=== PATIENT | male | born 1950 | race Caucasian/White ===

== ENCOUNTER → 2024-05-21 | Outpatient (CLI) | payer MEDICARE, BC, SELFPAY ==
--- NOTE | 2024-05-21 09:00 | XR_ITS ---
Examination: Abdomen sonogram, complete Date and time of exam: May 21, 2024 0852 hours INDICATIONS: Acid reflux heartburn vomiting beginning 2-3 years ago. Technique: Multiple real-time grayscale transabdominal sonographic images of the abdomen have been obtained. Findings: 10 mm gallstone Gallbladder wall 0.3 cm no edema Common normal common bile duct 0.3 cm Pancreatic head 2.8 cm Aorta not enlarged Liver 11.7 cm fatty infiltration no focal liver lesions Normal hepatopedal portal venous flow Patent IVC Right kidney 10.7 x 6.1 x 5.6 cm renal cortex 1.6 cm Left kidney 12.0 x 5.3 x 4.5 cm cortex 1.8 cm Mild bilateral renal parenchymal scar formation Mild left hydronephrosis Spleen 9.9 cm IMPRESSION: Cholelithiasis, negative for cholecystitis Fatty liver Mild left hydronephrosis
--- NOTE | 2024-05-21 09:48 | XR_ITS ---
Examination: Esophagram standard Fluoroscopy 22 spot fluoroscopic films of the esophagus Upright PA chest single view Upright soft tissue lateral neck single view Exam date and time: May 21, 2024 0953 hours INDICATIONS: Heartburn reflux beginning 5 years ago TECHNIQUE AND FINDINGS: Upright PA chest normal heart size ectatic thoracic aorta, probable scarring at the right lung base Soft tissue lateral neck demonstrates advanced degenerative disc disease C3-C4, C5-C6, C6-C7 with moderate cervical spondylosis Severe esophageal dysmotility No primary peristaltic waves Numerous secondary and tertiary esophageal contractions with esophageal spasm Continuous gastroesophageal reflux Narrowing of the gastroesophageal junction 80% No esophageal ulcerations Fluoroscopy 0.28 minutes 22 spot fluoroscopic films IMPRESSION: Severe esophageal dysmotility No primary peristaltic esophageal waves Numerous secondary and tertiary esophageal contractions with esophageal spasm Continuous gastroesophageal reflux Stricture likely related to reflux at the gastroesophageal junction, 80% stenosis
== END | disposition home or self-care (01) ==
PROVIDERS: PCP Internal Medicine; Referring Provider Internal Medicine; Visit Provider Internal Medicine
DX: K22.4 Dyskinesia of esophagus (principal); K21.9 Gastro-esophageal reflux disease without esophagitis; K80.20 Calculus of gallbladder without cholecystitis without obstruction; K76.0 Fatty (change of) liver, not elsewhere classified; N13.30 Unspecified hydronephrosis
CPT/HCPCS: 74220; 76700

== ENCOUNTER 2024-08-04 12:45 | Day surgery (SDC) | payer MEDICARE, BC, SELFPAY ==
[2024-08-01 15:14] VITALS: BMI 25.7
[2024-08-04] VITALS (9 sets, daily range): BP systolic 114–153; BP diastolic 76–100; PULSE 65–92; RESP 12–21; TEMP 36.1–36.6; O2SAT 94–100; BMI 25.9
[2024-08-04] MEDS: fentaNYL CIT INJ 50 mCg/ML AMP 2ML (ASD USE ONLY) IV (15:07)
[2024-08-04] MEDS: MIDAZOLAM INJ 1 MG/ML VIAL 2 ML (ASD USE ONLY) 2 MG IV (15:07)
[2024-08-04] MEDS: SODIUM CHLORIDE 0.9% 500 ML 500 ML 100 ML IV (15:07)
[2024-08-04] MEDS: DiphenhydrAMINE INJ 50 MG/ML VIAL 25 MG IV (15:08)
== END 2024-08-04 15:33 | disposition home or self-care (01) ==
PROVIDERS: PCP Internal Medicine; Referring Provider Specialist; Visit Provider Specialist
PROC: (CPT 43239; principal; 2024-08-04 14:15)
DX: K22.2 Esophageal obstruction (principal); K29.70 Gastritis, unspecified, without bleeding
CPT/HCPCS: 43249; 43239; C1725; J1200; J2250; J3010; J7040

== ENCOUNTER 2024-09-15 11:40 | Day surgery (SDC) | payer MEDICARE, BC, SELFPAY ==
[2024-09-15] VITALS (10 sets, daily range): BP systolic 123–155; BP diastolic 73–97; PULSE 58–86; RESP 12–20; TEMP 36.2–37; O2SAT 94–99; BMI 25.4
[2024-09-15] MEDS: SODIUM CHLORIDE 0.9% 500 ML 500 ML 20 ML IV (13:10)
[2024-09-15] MEDS: BENZOCAINE 20% (Hurricaine) SPRAY 1 DOSE TOP (13:18)
[2024-09-15] MEDS: DiphenhydrAMINE INJ 50 MG/ML VIAL 25 MG IV (13:20)
[2024-09-15] MEDS: fentaNYL CIT INJ 50 mCg/ML AMP 2ML (ASD USE ONLY) IV (13:30)
[2024-09-15] MEDS: MIDAZOLAM INJ 1 MG/ML VIAL 2 ML (ASD USE ONLY) 2 MG IV (13:30)
--- NOTE | 2024-09-15 13:55 | SUR.PHASEII ---
1336: Pt received for recovery. Report from Davida CRUZ. Pt obtunded. Resp even, unlabored. VS stable. No signs of pain, discomfort.
--- NOTE | 2024-09-15 14:46 | SUR.PHASEII ---
1400: Pt more awake, alert. VS stable. Denies pain. Sitting up tolerating po fluids with no difficulty swallowing and no n/v. 1422: Pt fully awake, oriented x3. VS stable. Denies pain. Pt assisted to restroom. Ambulation steady. Pt stated understanding of discharge instructions. Pt discharged from [facility] in stable condition.
== END 2024-09-15 14:22 | disposition home or self-care (01) ==
PROVIDERS: PCP Internal Medicine; Referring Provider Specialist; Visit Provider Specialist
PROC: (CPT 43239; principal; 2024-09-15 12:45)
DX: K22.2 Esophageal obstruction (principal); K29.70 Gastritis, unspecified, without bleeding; E78.5 Hyperlipidemia, unspecified; I10 Essential (primary) hypertension; I25.10 Atherosclerotic heart disease of native coronary artery without angina pectoris; Z95.5 Presence of coronary angioplasty implant and graft; Z79.02 Long term (current) use of antithrombotics/antiplatelets; Z79.82 Long term (current) use of aspirin; Z79.899 Other long term (current) drug therapy
CPT/HCPCS: 43249; C1725; J1200; J2250; J3010; J7040; A9270

== ENCOUNTER 2024-11-28 09:20 | Day surgery (SDC) | payer MEDICARE, BC, SELFPAY ==
[2024-11-28] VITALS (10 sets, daily range): BP systolic 114–157; BP diastolic 80–103; PULSE 77–89; RESP 12–20; TEMP 36.4–36.9; O2SAT 92–100; BMI 25.6
[2024-11-28] MEDS: SODIUM CHLORIDE 0.9% 500 ML 500 ML 20 ML IV (10:51)
[2024-11-28] MEDS: fentaNYL CIT INJ 50 mCg/ML AMP 2ML (ASD USE ONLY) IVP (10:59)
[2024-11-28] MEDS: MIDAZOLAM INJ 1 MG/ML VIAL 2 ML (ASD USE ONLY) 2 MG IVP (10:59)
--- NOTE | 2024-11-28 11:43 | SUR.PHASEII ---
1112 patient into recovery with no acute distress noted, v/s stable, no complaints of pain or nausea at this time, report received from radha archer. 1122 patient repositions self for comfort, patient denies pain and nausea, patient continues to pass flatus. 1132 patient drinking water with no difficulty. 1143 patient ambulates to wheelchair with no assistance needed, with a steady gait.
--- NOTE | 2024-11-28 11:53 | SUR.PHASEII ---
d/c instructions given to patient and patient's Daniels. Patient discharged home at 1150.
== END 2024-11-28 11:50 | disposition home or self-care (01) ==
PROVIDERS: PCP Nurse Practitioner Family; Referring Provider Specialist; Visit Provider Specialist
PROC: (CPT 43239; principal; 2024-11-28 10:30)
DX: K22.2 Esophageal obstruction (principal); K31.89 Other diseases of stomach and duodenum
CPT/HCPCS: 43249; C1726; J1200; J2250; J3010; J7999

== ENCOUNTER → 2024-12-26 | Outpatient (CLI) | payer MEDICARE, BC, SELFPAY ==
[2024-12-26 10:44] LABS: Basophils # (Auto) 0.1 Thou/mm3 (0.0-0.2); Basophils % (Auto) 1 % (0-2.5); Eosinophils # (Auto) 0.5 Thou/mm3 (0.0-0.5); Eosinophils % (Auto) 5 % (0-10); Hematocrit 46.7 % (41.0-53.0); Hemoglobin 15.4 g/dL (13.5-16.0); Immature Granulocytes Auto 0.10 Thou/mm3 (0.00-0.00); Lymphocytes # (Auto) 3.0 Thou/mm3 (1.0-4.8); Lymphocytes % (Auto) 33 % (10-50); Mean Corpuscular HGB Conc 33.0 g/dl (31.0-37.0); Mean Corpuscular Hemoglobin 30.0 pg (25.0-35.0); Mean Corpuscular Volume 91 fL (80-100); Monocytes # (Auto) 1.0 Thou/mm3 (0.0-0.8); Monocytes % (Auto) 11 % (0-12); Neutrophils # (Auto) 4.4 Thou/mm3 (1.8-7.7); Neutrophils % (Auto) 48 % (37-80); Nucleated Red Blood Cell # 0.00 Thou/mm3 (0.00-0.00); Nucleated Red Blood Cell % 0 /100 WBC (0); Platelet Count 157 Thou/mm3 (140-440); RDW Standard Deviation 46.2 fL (35.1-43.9); Red Blood Count 5.13 Miln/mm3 (4.50-5.90); White Blood Count 9.0 Thou/mm3 (3.8-10.6)
[2024-12-26 11:16] LABS: Collection Type, Urine Clean Catch; Squamous Epithelial Cell,Urine 0 /hpf (0-5)
[2024-12-26 12:24] LABS: Amorphous Crystals,Urine Present (Absent); Bacteria,Urine Rare; Bilirubin,Urine Negative (Negative); Blood,Urine Negative (Negative); Clarity,Urine Clear (Clear/Hazy); Color,Urine Lt-Yellow (Lt Yel-Yel); Glucose, Urine Negative (Negative); Ketones,Urine Negative (Negative); Leukocyte Esterase,Urine Negative (Negative); Nitrite,Urine Negative (Negative); PH,Urine 6.0 (5.0-7.0); Protein,Urine Negative (Neg - Trace); RBC,Urine 2 /hpf (0-3); Specific Gravity,Urine 1.023 (1.001-1.035); Urobilinogen,Urine Negative mg/dL (0.0-1.0); WBC,Urine 1 /hpf (0-5)
[2024-12-26 12:52] LABS: Alanine Aminotransferase 17 U/L (10-49); Albumin, Serum 4.5 gm/dL (3.4-4.8); Albumin/Globulin Ratio 1.7 (1.2-2.2); Alkaline Phosphatase 85 U/L (46-116); Anion Gap 9 (7-16); Aspartate Amino Transferase 29 U/L (0-34); BUN/Creatinine Ratio 13 Ratio (12-20); Bilirubin,Total 1.0 mg/dL (0.3-1.2); Blood Urea Nitrogen 12 mg/dL (9-23); Calcium 9.6 mg/dL (8.3-10.6); Calcium (Corrected) 9.6 mg/dL (8.5-10.1); Carbon Dioxide 24.6 mMol/L (20.0-31.0); Chloride 104 mMol/L (98-107); Creatinine (Component) 0.9 mg/dL (0.6-1.3); Globulin 2.6 gm/dL (2.3-3.5); Glucose 90 mg/dL (74-106); Lipase 79 U/L (12-53); Osmolality,Calculated 275 (275-295); Potassium 4.0 mMol/L (3.4-5.1); Sodium 138 mMol/L (136-145); Total Protein 7.1 gm/dL (5.7-8.2); eGFR > 60 See Note
[2024-12-27 02:09] LABS: Amylase 50 U/L (30-118)
== END | disposition home or self-care (01) ==
LOC: COPL 09:47
PROVIDERS: PCP Internal Medicine; Referring Provider Specialist; Visit Provider Specialist
DX: R14.0 Abdominal distension (gaseous) (principal); R10.13 Epigastric pain; E78.9 Disorder of lipoprotein metabolism, unspecified
CPT/HCPCS: 36415; 80053; 81001; 82150; 83690; 85025

== ENCOUNTER → 2025-01-13 | Outpatient (CLI) | payer MEDICARE, BC, SELFPAY ==
--- NOTE | 2025-01-13 14:00 | XR_ITS ---
Examination: CT abdomen and pelvis without contrast. Coronal 3-D reconstructions. Sagittal 2-D reconstructions. Date and time of exam:January 13, 2025 1355 hours INDICATIONS: Abdominal distention left lower abdominal pain 5 years, history kidney stones October 04, 2009 CTDI: vol (mGy): 7.91 DLP: (mGycm): 515 Technique: Axial images of the abdomen have been obtained, 3 mm slice thickness Intravenous contrast material has not been administered. Low dose protocols were performed. One or more of the following dose reduction techniques were used; automated exposure control, adjustment of the mA and/or KV according to patient size, use of iterative reconstruction technique. Findings: Liver calcifications. No gallstones. No pancreatic mass Spleen not enlarged. Moderate renal parenchymal scar formation No renal or ureteral calculi, no hydronephrosis Aortic calcification no aneurysmal dilatation Normal appendix No bowel obstruction No diverticulitis Normal seminal vesicles Transverse prostate dimension 4.4 cm Contracted urinary bladder, urinary bladder wall thickening up to 5 mm Prominent osteopenia IMPRESSION: Normal appendix No bowel obstruction Urinary bladder wall thickening, consider cystitis
== END | disposition home or self-care (01) ==
LOC: CCTX 13:47
PROVIDERS: PCP Specialist; Referring Provider Specialist; Visit Provider Specialist
DX: N32.89 Other specified disorders of bladder (principal)
CPT/HCPCS: 74176

== ENCOUNTER → 2025-01-15 | Outpatient (CLI) | payer MEDICARE, BC, SELFPAY ==
[2025-01-15 12:04] LABS: Basophils # (Auto) 0.1 Thou/mm3 (0.0-0.2); Basophils % (Auto) 1 % (0-2.5); Eosinophils # (Auto) 0.4 Thou/mm3 (0.0-0.5); Eosinophils % (Auto) 5 % (0-10); Hematocrit 47.8 % (41.0-53.0); Hemoglobin 15.8 g/dL (13.5-16.0); Immature Granulocytes Auto 0.08 Thou/mm3 (0.00-0.00); Lymphocytes # (Auto) 3.0 Thou/mm3 (1.0-4.8); Lymphocytes % (Auto) 35 % (10-50); Mean Corpuscular HGB Conc 33.1 g/dl (31.0-37.0); Mean Corpuscular Hemoglobin 30.1 pg (25.0-35.0); Mean Corpuscular Volume 91 fL (80-100); Monocytes # (Auto) 1.0 Thou/mm3 (0.0-0.8); Monocytes % (Auto) 11 % (0-12); Neutrophils # (Auto) 4.0 Thou/mm3 (1.8-7.7); Neutrophils % (Auto) 46 % (37-80); Nucleated Red Blood Cell # 0.00 Thou/mm3 (0.00-0.00); Nucleated Red Blood Cell % 0 /100 WBC (0); Platelet Count 160 Thou/mm3 (140-440); RDW Standard Deviation 45.8 fL (35.1-43.9); Red Blood Count 5.25 Miln/mm3 (4.50-5.90); White Blood Count 8.5 Thou/mm3 (3.8-10.6)
[2025-01-15 12:11] LABS: Glucose Estimated Average 111 mg/dL (80-131); Hemoglobin A1C 5.5 % Hgb (4.8-6.0)
[2025-01-15 12:24] LABS: Prostate Specific Antigen 1.43 ng/mL (0-4.00)
[2025-01-15 12:36] LABS: Alanine Aminotransferase 18 U/L (10-49); Albumin, Serum 4.3 gm/dL (3.4-4.8); Albumin/Globulin Ratio 1.8 (1.2-2.2); Alkaline Phosphatase 88 U/L (46-116); Anion Gap 11 (7-16); Aspartate Amino Transferase 21 U/L (0-34); BUN/Creatinine Ratio 16 Ratio (12-20); Bilirubin,Total 0.9 mg/dL (0.3-1.2); Blood Urea Nitrogen 16 mg/dL (9-23); Calcium 9.9 mg/dL (8.3-10.6); Calcium (Corrected) 9.9 mg/dL (8.5-10.1); Carbon Dioxide 25.7 mMol/L (20.0-31.0); Cardiac Risk Estimate 3.0 RATIO (4.0-6.7); Chloride 103 mMol/L (98-107); Cholesterol 128 mg/dL (132-200); Creatinine (Component) 1.0 mg/dL (0.6-1.3); Free T4 (Free Thyroxine) 1.16 ng/dL (0.89-1.76); Globulin 2.4 gm/dL (2.3-3.5); Glucose 89 mg/dL (74-106); HDL Cholesterol 42 mg/dL (40-60); LDL Cholesterol,Calculated 71 mg/dL (0-130); Osmolality,Calculated 279 (275-295); Potassium 4.9 mMol/L (3.4-5.1); Sodium 140 mMol/L (136-145); Thyroid Stimulating Hormone 2.18 uIU/mL (0.55-4.78); Total Protein 6.7 gm/dL (5.7-8.2); Triglycerides 77 mg/dL (30-150); eGFR > 60 See Note
== END | disposition home or self-care (01) ==
PROVIDERS: PCP Family Medicine; Referring Provider Family Medicine; Visit Provider Family Medicine
DX: E11.65 Type 2 diabetes mellitus with hyperglycemia (principal); D64.9 Anemia, unspecified; R97.20 Elevated prostate specific antigen [PSA]
CPT/HCPCS: 36415; 80053; 80061; 83036; 84153; 84439; 84443; 85025

== ENCOUNTER → 2025-04-02 | Outpatient (CLI) | payer MEDICARE, BC, SELFPAY ==
--- NOTE | 2025-04-02 14:00 | XR_ITS ---
Examination: Bone densitometry Date and time of exam: April 02, 2025, 1422 hours INDICATIONS: 74-year-old male with diagnosis age-related osteoporosis, personal history osteoporosis Technique: Lumbar spine and hip total bone mineralization values of an calculated. Peak reference and age match control results have been displayed. Findings: Lumbar spine total bone mineralization is 0.745 gm/cm2. This is 3.1 standard deviations below peak reference. This is 2.2 standard deviations below age-matched controls. Hip total bone mineralization is 0.789 gm/cm2 This is 1.6 standard deviations below peak reference. This is 0.9 standard deviations below age-matched controls Impression: There is osteoporosis based on lumbar spine measurements. There is osteopenia based on hip measurements Lumbar mineralization is decreased 5.4% compared with January 11, 2011 Hip mineralization is decreased 7.3% compared with January 11, 2011
== END | disposition home or self-care (01) ==
LOC: CDIM 13:27
PROVIDERS: Referring Provider Family Medicine; Visit Provider Family Medicine
DX: M81.0 Age-related osteoporosis without current pathological fracture (principal); M85.89 Other specified disorders of bone density and structure, multiple sites
CPT/HCPCS: 77080